=== PATIENT | male | born 1965 | race Caucasian/White ===

== ENCOUNTER 2023-12-19 09:48 | Emergency (ER) | payer OTHER, SELFPAY ==
[2023-12-19 09:59] VITALS: BP 140/83
--- NOTE | 2023-12-19 10:16 | ED.GENMED ---
History of Present Illness
<Kalyani Dodd PA-C - Last Filed: 12/19/23 14:01>
General
Chief Complaint: Skin Surface Trauma
Source: patient
Exam Limitations: none
Time Seen by Provider: 12/19/23 10:11
Nursing documentation reviewed up to this point in time: agreed with
Travel History
Have you had any contact with someone who has COVID-19?: No
Do you have any symptoms of coronavirus? Fever > 100 degrees, chills, cough, shortness of breath, sore throat, loss of taste or smell, muscle aches, or headache?: No
History of Present Illness
History of Present Illness:
58-year-old male with past medical history of anxiety, high blood pressure presenting emergency department today with a laceration to his second finger on his left hand following the injury with hedge trimmers. Patient states that shortly prior to
arrival, he was using hedge tremors outside when he lost control of it and slipped and cut his left finger. Patient denies any fevers or chills, foreign body in the finger, blood thinner use, head injury, falls. Patient denies any nausea,
vomiting, abdominal pain, chest pain, shortness of breath.
Past History
<Kalyani Dodd PA-C - Last Filed: 12/19/23 14:01>
Past History
ED Past Medical History: HTN and Psychiatric (Anxiety)
ED Past Surgical History: None
Social History
Tobacco: Non-smoker
Personal:
Employment: Employed
Phy Exam
<DARRYL Bucio Last Filed: 12/19/23 14:01>
Physical Exam
Physical Exam:
General: Patient is well appearing and in no acute distress; non-toxic
Skin: Warm and dry, there is a 2 cm actively bleeding laceration on the volar surface of the left second finger
Head: Normocephalic, atraumatic
Eyes: Sclera non-icteric. EOMs intact.
Cardiac: Regular rate
Peripheral Vascular: No lower extremity swelling
Abdomen: No abdominal tenderness
Musculoskeletal: Bony tenderness to the left middle phalanx. No bony tenderness to palpation of the left ulna, radius, olecranon, humerus. Patient unable to flex left second finger.
Neuro: CN II-XII intact, no focal neurologic deficits.
Psychiatric: Appropriate mood and affect.
Course
<Kalyani Dodd PA-C - Last Filed: 12/19/23 14:01>
Orders/Labs/Results
Orders:
Orders
12/19/23 10:26
CR Hand - Left Min 3 Views Urgent
Reason For Exam: 2nd digit trauma
12/19/23 10:31
Ibuprofen [Motrin] 600 mg PO NOW STA
12/19/23 11:48
CeFAZolin 1 GRAM [Ancef] 1 gram in 5 ml IV NOW
Vital Signs
Initial and Last Documented VS:
Initial Vital Signs
Temp Pulse Resp BP Pulse Ox
98.1 F 66 18 140/83 96
12/19/23 09:59 12/19/23 09:59 12/19/23 09:59 12/19/23 09:59 12/19/23 09:59
Last Documented Vital Signs
Temp Pulse Resp BP Pulse Ox
98.1 F 66 18 140/83 96
12/19/23 09:59 12/19/23 09:59 12/19/23 09:59 12/19/23 09:59 12/19/23 09:59
<Gage Bennett DO - Last Filed: 12/19/23 10:42>
Orders/Labs/Results
Orders:
Orders
12/19/23 10:26
CR Hand - Left Min 3 Views Urgent
Reason For Exam: 2nd digit trauma
12/19/23 10:31
Ibuprofen [Motrin] 600 mg PO NOW STA
12/19/23 11:48
CeFAZolin 1 GRAM [Ancef] 1 gram in 5 ml IV NOW
Vital Signs
Initial and Last Documented VS:
Initial Vital Signs
Temp Pulse Resp BP Pulse Ox
98.1 F 66 18 140/83 96
12/19/23 09:59 12/19/23 09:59 12/19/23 09:59 12/19/23 09:59 12/19/23 09:59
Last Documented Vital Signs
Temp Pulse Resp BP Pulse Ox
98.1 F 66 18 140/83 96
12/19/23 09:59 12/19/23 09:59 12/19/23 09:59 12/19/23 09:59 12/19/23 09:59
Procedures
<DARRYL Bucio Last Filed: 12/19/23 14:01>
Laceration Closure
Left Second Finger:
Status of Wound: clean
Size of Wound in cm: 2
Description of Wound Edges: sharp
Preparation: cleaned with saline
Anesthesia: 1% Lidocaine
Revision/Debridement: routine- no revision
Skin Closure Material: 4-0 prolene
Number of sutures: 6
<DARRYL Bucio Last Filed: 12/19/23 14:01>
MDM/Problems Addressed
Differential Diagnosis Includes:
ddx include phalanx fracture, flexor tendon injury, abrasion, laceration, contusion
MDM/Problems Addressed:
finger laceration, trauma
Chronic conditions affecting care: HTN
<DARRYL Bucio Last Filed: 12/19/23 14:01>
*Pulse Oximetry
Patient hypoxic: no
*Critical Care Note
Total Time (30-74mins, 75-104mins- exclusive of procedures): Not Applicable
Data Reviewed
Review of Other/Old Records Reveals: Records (reviewed ER physician documentation from 06/06/14)
Source: patient and records
<Kalyani Dodd PA-C - Last Filed: 12/19/23 14:01>
Patient Management
Escalation/DeEscalation of care consider admission/obs:
58-year-old male with past medical history of anxiety, high blood pressure presenting emergency department today with a laceration to his second finger on his left hand following the injury with hedge trimmers. Considering patient has inability to
flex left second digit, patient likely lacerated his flexor tendon. I spoke to Dr. Kimble, orthopedist on-call, who provided recommendations and recommended follow-up with [facility]. Patient's wound was thoroughly irrigated, and patient was
placed in a volar slab splint along with a finger splint for extra support. Patient was given 1 dose of IV cefazolin here and will continue antibiotics as outpatient. His x-ray also demonstrated a small avulsion fracture phalanx. Wound care and
return precautions given, patient will call Dr. Cantrell's office tomorrow. Patient stable for discharge.
ED Attending Note
<Kalyani Dodd PA-C - Last Filed: 12/19/23 14:01>
-
Portions of this chart may have been created with voice recognition software.� Occasional wrong word or��sound alike� substitutions may have occurred due to the inherent limitations of voice recognition software.
<Gage Bennett DO - Last Filed: 12/19/23 10:42>
ED Attending Note
Patient seen and examined by attending physician: Yes
I performed the substantive portion of visit, reviewed & personally made and approve the management plan that is documented in note by myself or QUENTIN.: Yes
ED Attending Note:
I have seen and evaluated the patient with a [id number] encounter. I have spoken to the advance practicer provider and involved in the medical history, the physical exam, medical decision making.
Evaluation and management service: agree unless noted differently below.
Results interpretation: agree unless noted differently below.
Focused HPI: 58-year-old male presenting with left finger injury. Patient was using his hedge tremor and he cut his left finger by accident. He is right-hand
Physical exam: Laceration noted to left finger. Patient unable to flex his left index finger
Medical Decision Making: Clinically, patient cut his flexor tendon. Will obtain x-ray, suture and splint and follow-up with hand
Discharge Plan
Departure
Patient Disposition: Home (Routine Discharge)
Date of Disposition: 12/19/23
Time of Disposition: 12:45
Patient with high blood pressure during this ER visit?: Yes
Condition: Good
Discharge Problem:
Finger laceration involving tendon, Avulsion fracture of middle phalanx of finger
Instructions: Wound Care (DC), Laceration Repair With Stitches (DC), Splint Care ED, BLOOD PRESSURE
Prescriptions:
New
cephalexin 500 mg capsule
500 mg feeding tube QID 7 Days Qty: 28 0RF
No Action
citalopram 10 MG tablet
10 mg PO DAILY
Lopressor:
0 mg PO DAILY
Patient Comments:
Pt thinks 25 mg
sulfacetamide sodium 1 DROP drops
1 drp ophthalmic (eye) Q3 Qty: 1 0RF
Referrals:
Benjamin Morgan MD [Family Provider] -
Avni Cantrell MD [Active] - Call in 1-3 days for appt
Activity Restrictions/Additional Instructions:
We have sent cephalexin to your pharmacy. Please take one tablet 4 times daily for 7 days starting tomorrow.
Please call the attached number to schedule appointment for follow up. Please tell them you were seen in the emergency department.
PLEASE RETURN TO THE ER SHOULD YOU EXPERIENCE AN ACUTE WORSENING OF YOUR PAIN, ABDOMINAL PAIN, FEVERS OR CHILLS, NAUSEA OR VOMITING, CHEST PAIN, SHORTNESS OF BREATH, OR ANY OTHER CONCERNING SIGNS OR SYMPTOMS.
Interventions
Interventions:
*Risk Screen - Suicide Last Done: 12/19/23 09:59
*General Assessment Last Done: 12/19/23 09:59
*Neglect/Abuse Screening Last Done: 12/19/23 09:59
*ED COVID-19 Vaccine History Last Done: 12/19/23 09:59
*Nursing Disposition Last Done: 12/19/23 13:03
ED-Skin Assessment Last Done: 12/19/23 11:16
Discharge Date and Time
Discharge Date/Time: 12/19/23 13:03
Print Language: HEBREW
[2023-12-19] MEDS: MOTRIN 600 MG PO (11:02)
[2023-12-19] MEDS: ANCEF 5 IV (11:52)
== END 2023-12-19 13:03 | disposition home or self-care (01) ==
LOC: EMR 09:48
PROVIDERS: EMERGENCY PHYSICIAN Student in an Organized Health Care Education/Training Program; FAMILY PHYSICIAN Internal Medicine
DX: S56.122A Laceration of flexor muscle, fascia and tendon of left index finger at forearm level, initial encounter (principal); W29.3XXA Contact with powered garden and outdoor hand tools and machinery, initial encounter; I10 Essential (primary) hypertension; F41.9 Anxiety disorder, unspecified
CPT/HCPCS: 99282; 12001; 96374; 73130

== ENCOUNTER 2023-12-26 18:05 | Observation (INO) | payer OTHER, SELFPAY ==
[2023-12-26] VITALS (12 sets, daily range): BP systolic 118–150; BP diastolic 65–85; BMI 27.0
--- NOTE | 2023-12-26 09:21 | ED.GENMED ---
History of Present Illness
<Brett Hutchison Jr., PA-C - Last Filed: 12/26/23 16:39>
General
Chief Complaint: Abdominal Symptoms
Source: patient and spouse
Exam Limitations: none
Time Seen by Provider: 12/26/23 09:10
Nursing documentation reviewed up to this point in time: agreed with
Travel History
Have you had any contact with someone who has COVID-19?: No
Do you have any symptoms of coronavirus? Fever > 100 degrees, chills, cough, shortness of breath, sore throat, loss of taste or smell, muscle aches, or headache?: No
History of Present Illness
History of Present Illness:
58-year-old male past medical history of hypertension anxiety presenting to the emergency department today with concerns of lightheadedness starting yesterday progressing this morning with associated nausea and multiple episodes of vomiting this
morning. Was given Zofran via EMS and without improve denies any specific exposures. He did have a recent tendon repair to his left hand claims is otherwise feels well he denies any significant pain to the area denies any abdominal pain chest pain
or shortness of breath.
Past History
<Brett Hutchison Jr., PA-C - Last Filed: 12/26/23 16:39>
Past History
ED Past Medical History: HTN and Psychiatric (Anxiety)
ED Past Surgical History: None
Social History
Tobacco: Non-smoker
Personal:
Employment: Employed
Review of Systems
<Brett Hutchison Jr., PA-C - Last Filed: 12/26/23 16:39>
Review of Systems
Allergies reviewed?: Yes
All Other Systems: ROS reviewed and negative except as documented in HPI and ROS
Phy Exam
<Brett Hutchison Jr., PA-C - Last Filed: 12/26/23 16:39>
Physical Exam
Physical Exam:
GENERAL: Alert , diaphoretic
EYE: pupils equal and reactive
NECK: Supple, no significant adenopathy.
ENT: o/p clr, mmm.
CARDIAC: Regular rate and rhythm .
LUNGS: Clear breath sounds bilaterally, no acute respiratory distress, no wheezes/rales/rhonchi
ABDOMEN: Soft, without focal tenderness, no r/g, no cvat
NEUROLOGICAL: Alert and oriented, no focal neuro deficits
SKIN: Warm and dry, skin intact.
MUSCULOSKELETAL: No edema, well perfused.
PSYCH: Normal and appropriate interaction.
Course
<Brett Hutchison Jr., DARRYL - Last Filed: 12/26/23 16:39>
Orders/Labs/Results
Orders:
Orders
12/26/23 09:00
Electrocardiogram (*1) Urgent
Reason for Study: Vertigo / Dizzy
12/26/23 09:01
EKG- Treatment ONCE
12/26/23 09:19
Diphenhydramine [Benadryl] 25 mg IV NOW STA
Metoclopramide [Reglan] 10 mg IV NOW STA
12/26/23 09:23
Complete Blood Count/With Diff Urgent
Comprehensive Metabolic Panel Urgent
Lactic Acid Urgent
Lipase Urgent
Troponin I Urgent
12/26/23 10:20
0.9% Sodium Chloride 500 ml [Nss] 500 ml IV BOLUS
Famotidine [Pepcid] 20 mg IV NOW STA
Ondansetron Injectable [Zofran] 4 mg IV NOW STA
12/26/23 10:41
Chest [CR Chest - 2 Views ] Urgent
Comment:
Reason For Exam: vomiting, lightheaded
12/26/23 12:50
0.9% Sodium Chloride 500 ml [Nss] 500 ml IV BOLUS
12/26/23 12:58
Lactic Acid Urgent
12/26/23 14:15
CT Head & Neck Angio W/wo IV Urgent
Comment:
Reason For Exam: neck pain dizziness
12/26/23 Dinner
Regular
At Your Request: Limited, Iron Erector Required
Does patient need a safe tray?: No
12/26/23 15:12
Meclizine [Antivert] 25 mg PO NOW STA
Ondansetron Injectable [Zofran] 4 mg IV NOW STA
12/26/23 15:14
Ondansetron Injectable [Zofran] 4 mg .ROUTE .STK-MED ONE
12/26/23 16:36
Pt Eval And Treat Urgent
Treatment: vestibular
Activity Level: Ambulate
12/26/23 16:44
Urinalysis Reflex To Culture Urgent
Date Specimen was Collected: 12/26/23
Time Specimen was Collected: 16:43
12/26/23 17:42
Admit/Transfer Patient As Directed
Co-Sign Provider:
Level of Care: Observation services
Assign to:: Telemetry
Physician / Group: vasyl
Diagnosis: vestibular neuritis
Reason for Telemetry: Arrhythmia
Date to Stop Telemetry: 12/29/23
Time to Stop Telemetry: 11:00
Code Status As Directed
Resuscitation Status: Full Code
12/26/23 17:45
Alprazolam [Xanax] 0.5 mg PO Q6HPRN PRN
12/26/23 19:36
Acetaminophen [Tylenol] 650 mg PO Q4HPRN PRN
Ezetimibe [Zetia] 10 mg PO QPM
Hydrocodone 5/APAP 325 [Fairplay 5/325] 1 tablet PO Q4HPRN PRN
Ondansetron Injectable [Zofran] 4 mg IV Q6HPRN PRN
Prednisone [Deltasone] 60 mg PO DAILY
12/26/23 19:36
Activity As Directed
Activity Level: As Tolerated
Pneumatic Compression Sleeves As Directed
Type: Knee high
Vital Signs As Directed
Frequency: Per unit guidelines
DX Deep Vein Thrombosis Video Routine
12/26/23 20:00
Tamsulosin [Flomax] 0.4 mg PO QPM
12/26/23 22:00
Cephalexin Monohydrate [Keflex] 500 mg PO QID
Sertraline HCl [Zoloft] 100 mg PO HS
12/27/23 06:18
Complete Blood Count/With Diff IN AM
Comprehensive Metabolic Panel IN AM
12/29/23 11:00
DC Protocol for Telemetry ONCE
Abnormal Lab Results
12/26/23 12/26/23
09:23 16:44
RBC 4.30 L 10^6/uL
(4.70-6.10)
Hct 38.8 L %
(39.0-52.0)
MCH 31.6 H pg
(27.0-31.0)
Glucose 172 H mg/dl
(70-99)
Lactic Acid 2.3 H mmol/L
(0.7-2.0)
Urine Ketones Trace A
(Negative)
Urine Glucose 1+ A
(Negative)
12/26/23 09:23
12/26/23 09:23
Vital Signs
Initial and Last Documented VS:
Initial Vital Signs
Temp Pulse Resp BP Pulse Ox
98.0 F 65 16 150/77 98
12/26/23 09:08 12/26/23 09:08 12/26/23 09:08 12/26/23 09:08 12/26/23 09:08
Last Documented Vital Signs
Temp Pulse Resp BP Pulse Ox
97.6 F 84 16 141/86 95
12/27/23 07:28 12/27/23 07:28 12/27/23 07:28 12/27/23 07:28 12/27/23 07:28
<Citlaly Borges, DO - Last Filed: 12/27/23 11:09>
Orders/Labs/Results
Orders:
Orders
12/26/23 09:00
Electrocardiogram (*1) Urgent
Reason for Study: Vertigo / Dizzy
12/26/23 09:01
EKG- Treatment ONCE
12/26/23 09:19
Diphenhydramine [Benadryl] 25 mg IV NOW STA
Metoclopramide [Reglan] 10 mg IV NOW STA
12/26/23 09:23
Complete Blood Count/With Diff Urgent
Comprehensive Metabolic Panel Urgent
Lactic Acid Urgent
Lipase Urgent
Troponin I Urgent
12/26/23 10:20
0.9% Sodium Chloride 500 ml [Nss] 500 ml IV BOLUS
Famotidine [Pepcid] 20 mg IV NOW STA
Ondansetron Injectable [Zofran] 4 mg IV NOW STA
12/26/23 10:41
Chest [CR Chest - 2 Views ] Urgent
Comment:
Reason For Exam: vomiting, lightheaded
12/26/23 12:50
0.9% Sodium Chloride 500 ml [Nss] 500 ml IV BOLUS
12/26/23 12:58
Lactic Acid Urgent
12/26/23 14:15
CT Head & Neck Angio W/wo IV Urgent
Comment:
Reason For Exam: neck pain dizziness
12/26/23 Dinner
Regular
At Your Request: Limited, Iron Erector Required
Does patient need a safe tray?: No
12/26/23 15:12
Meclizine [Antivert] 25 mg PO NOW STA
Ondansetron Injectable [Zofran] 4 mg IV NOW STA
12/26/23 15:14
Ondansetron Injectable [Zofran] 4 mg .ROUTE .STK-MED ONE
12/26/23 16:36
Pt Eval And Treat Urgent
Treatment: vestibular
Activity Level: Ambulate
12/26/23 16:44
Urinalysis Reflex To Culture Urgent
Date Specimen was Collected: 12/26/23
Time Specimen was Collected: 16:43
12/26/23 17:42
Admit/Transfer Patient As Directed
Co-Sign Provider:
Level of Care: Observation services
Assign to:: Telemetry
Physician / Group: vasyl
Diagnosis: vestibular neuritis
Reason for Telemetry: Arrhythmia
Date to Stop Telemetry: 12/29/23
Time to Stop Telemetry: 11:00
Code Status As Directed
Resuscitation Status: Full Code
12/26/23 17:45
Alprazolam [Xanax] 0.5 mg PO Q6HPRN PRN
12/26/23 19:36
Acetaminophen [Tylenol] 650 mg PO Q4HPRN PRN
Ezetimibe [Zetia] 10 mg PO QPM
Hydrocodone 5/APAP 325 [[place]play 5/325] 1 tablet PO Q4HPRN PRN
Ondansetron Injectable [Zofran] 4 mg IV Q6HPRN PRN
Prednisone [Deltasone] 60 mg PO DAILY
12/26/23 19:36
Activity As Directed
Activity Level: As Tolerated
Pneumatic Compression Sleeves As Directed
Type: Knee high
Vital Signs As Directed
Frequency: Per unit guidelines
DX Deep Vein Thrombosis Video Routine
12/26/23 20:00
Tamsulosin [Flomax] 0.4 mg PO QPM
12/26/23 22:00
Cephalexin Monohydrate [Keflex] 500 mg PO QID
Sertraline HCl [Zoloft] 100 mg PO HS
12/27/23 06:18
Complete Blood Count/With Diff IN AM
Comprehensive Metabolic Panel IN AM
12/29/23 11:00
DC Protocol for Telemetry ONCE
Abnormal Lab Results
12/26/23 12/26/23
09:23 16:44
RBC 4.30 L 10^6/uL
(4.70-6.10)
Hct 38.8 L %
(39.0-52.0)
MCH 31.6 H pg
(27.0-31.0)
Glucose 172 H mg/dl
(70-99)
Lactic Acid 2.3 H mmol/L
(0.7-2.0)
Urine Ketones Trace A
(Negative)
Urine Glucose 1+ A
(Negative)
12/26/23 09:23
12/26/23 09:23
Vital Signs
Initial and Last Documented VS:
Initial Vital Signs
Temp Pulse Resp BP Pulse Ox
98.0 F 65 16 150/77 98
12/26/23 09:08 12/26/23 09:08 12/26/23 09:08 12/26/23 09:08 12/26/23 09:08
Last Documented Vital Signs
Temp Pulse Resp BP Pulse Ox
97.6 F 84 16 141/86 95
12/27/23 07:28 12/27/23 07:28 12/27/23 07:28 12/27/23 07:28 12/27/23 07:28
<Brett Hutchison Jr., PA-C - Last Filed: 12/26/23 16:39>
MDM/Problems Addressed
MDM/Problems Addressed:
58-year-old male presenting to the emergency department today with concerns of lightheadedness ongoing since yesterday associated nausea and vomiting this. Given Zofran en route without improvement via EMS. Vital signs showing slightly elevated
blood pressure upon arrival but otherwise vital signs are normal afebrile normal heart rate. Patient actively retching here was given IV Reglan and Benadryl. Patient with some improvement of symptoms patient lactic was slightly elevated but other
labs unremarkable. He was given a liter and half of fluid the lactic acid was repeated now 1.1 and normal levels no signs of ACS with normal troponin normal EKG chest x-ray without acute abnormality. Patient claims he still feels lightheaded and
does have dizziness and feelings of off balance this this in association with the patient's neck pain plan to get a CT angiogram of the head neck. CT angiogram without acute findings. Patient was reassessed and claims that he still feels very
dizzy unable to ambulate. Plan to admit for further assessment and treatment. Patient without significant treatment after receiving meclizine Zofran Reglan and Benadryl.
<Brett Hutchison Jr., PA-C - Last Filed: 12/26/23 16:39>
*Critical Care Note
Total Time (30-74mins, 75-104mins- exclusive of procedures): Not Applicable
ED Attending Note
<Brett Hutchison Jr., PA-C - Last Filed: 12/26/23 16:39>
-
Portions of this chart may have been created with voice recognition software.� Occasional wrong word or��sound alike� substitutions may have occurred due to the inherent limitations of voice recognition software.
<Citlaly Borges DO - Last Filed: 12/27/23 11:09>
ED Attending Note
Patient seen and examined by attending physician: Yes
ED Attending Note:
58yoM presenting with dizzines for the past 2 days progressively worsening. Patient states he was able to go to the [employer] last night but had to leave in the fourth inning due to dizziness that was worse with standing up and moving his head.
Patient reports nausea and vomiting this morning. Patient states dizziness waxes and wanes but is always constant. Patient denies headache, neck pain, chest pain, shortness of breath, numbness, weakness, tingling, tinnitus, or visual changes. Heart
RRR, lungs clear, abdomen soft nondistended nontender. CNII-XII grossly intact with no focal deficits. +nystagmus. PERRLA, EOMI. Normal finger to nose. 5/5 strength bilateral upper and lower extremities. Sensation intact. Continues to report
dizziness despite IVF and meclizine, unable to stand. CTA head/neck unremarkable. Admit
Discharge Plan
Departure
Patient Disposition: Admit
Date of Disposition: 12/26/23
Time of Disposition: 16:36
Admit to: Telemetry
Admit to doctor: Mariola
Presentation/result/management discussed w/ accepting MD/DO: Hospitalist
Patient with high blood pressure during this ER visit?: No
Condition: Good
Covid-19: Not Applicable
Discharge Problem:
Dizziness
Interventions
Interventions:
*Risk Screen - Suicide Last Done: 12/26/23 09:19
*General Assessment Last Done: 12/26/23 09:19
*Neglect/Abuse Screening Last Done: 12/26/23 09:19
ED- Fall Risk Assessment Last Done: 12/26/23 09:19
*ED COVID-19 Vaccine History Last Done: 12/26/23 08:58
*Nursing Disposition Last Done: 12/26/23 19:26
AI-Dhjhel-Vcmshrdpph Assessment Last Done: 12/26/23 09:19
Discharge Date and Time
Discharge Date/Time: 12/26/23 19:26
[2023-12-26] MEDS: REGLAN 10 MG IV (09:24)
[2023-12-26] MEDS: BENADRYL 25 MG IV (09:24)
[2023-12-26 09:37] LABS: % Basophils 0.4 % (0-2); % Immature Granulocytes 0.3 % (0-0.5); % Monocytes 6.1 % (1.7-9.3); % Neutrophils 65.2 % (42.2-75.2); Absolute Eosinophils 0.2 10^3/uL (0-0.7); Absolute Lymphocytes 1.9 10^3/uL (1.2-3.4); Absolute Monocytes 0.5 10^3/uL (0.1-0.6); Absolute Neutrophils 4.8 10^3/uL (1.4-6.5); Hematocrit 38.8 % (39.0-52.0); Hemoglobin 13.6 g/dL (13.0-18.0); Mean Corp Hgb Conc. 35.1 g/dL (33.0-37.0); Mean Corpuscular Hgb 31.6 pg (27.0-31.0); Mean Corpuscular Volume 90.2 fL (80.0-94.0); Mean Platelet Volume 8.9 fL (7.4-10.4); Nucleated Red Blood Cells % 0 % (-); Platelet Count 265 10^3/uL (130-400); Red Cell Dist. Width 12.1 % (11.5-14.5); White Blood Cell Count 7.3 10^3/uL (4.8-10.8)
[2023-12-26 10:04] LABS: ALT (SGPT) 15 U/L (0-50); AST (SGOT) 21 U/L (17-59); Albumin 3.8 g/dl (3.5-5.0); Alkaline Phosphatase 48 U/L (38-126); Blood Urea Nitrogen 19 mg/dl (9-20); Carbon Dioxide 25 mmol/L (22-30); Chloride 106 mmol/L (98-107); Glucose 172 mg/dl (70-99); Lipase 70 U/L (23-300); Potassium 3.6 mmol/L (3.5-5.1); Sodium 139 mmol/L (135-145); Total Bilirubin 0.4 mg/dl (0.2-1.3); Total Protein 6.3 g/dl (6.3-8.2); eGFR > 60.00
[2023-12-26 10:05] LABS: Troponin I < 0.012 ng/ml
[2023-12-26] MEDS: ZOFRAN 4 MG IV ×2 (10:25→15:19)
[2023-12-26] MEDS: PEPCID 20 MG IV (10:25)
[2023-12-26] MEDS: NSS 500 IV ×2 (10:26→13:01)
[2023-12-26 10:30] LABS: Lactic Acid 2.3 mmol/L (0.7-2.0)
[2023-12-26 13:25] LABS: Lactic Acid 1.1 mmol/L (0.7-2.0)
[2023-12-26] MEDS: ANTIVERT 25 MG PO (15:19)
[2023-12-26 16:59] LABS: Urine Albumin Negative (Neg - Trace); Urine Bilirubin Negative (Negative); Urine Character Clear (Clear); Urine Color Yellow; Urine Glucose 1+ (Negative); Urine Ketone Trace (Negative); Urine Leukocyte Negative (Negative); Urine Nitrite Negative (Negative); Urine Occult Blood Negative (Negative); Urine Specific Gravity 1.015 (<1.030); Urine Urobilinogen Negative (Neg - 1+)
--- NOTE | 2023-12-26 17:47 | HPS.HSE ---
Family Physician
-
Family Physician: Benjamin Morgan
Chief Complaint
-
vertigo
History of Present Illness
58-year-old male past medical history of hypertension, anxiety, HLD, recent left hand tendon repair 4 days ago presenting with lightheadedness/vertigo started yesterday and progressively getting worse today. Symptoms are described as a combination
of dizziness and spinning. Symptoms are worse with with his eyes open, rightward gaze and when he moves his head. He did have some neck stiffness which is improved now. He had nausea and multiple episodes of vomiting. Denies abdominal pain,
diarrhea. Denies fevers or chills. Denies any headache, blurry vision or double vision or hearing loss or ringing in the ears. Denies any recent upper respiratory infection.
He had similar symptoms 1 year ago while he was playing golf which resolved after he sat down for some period of time.
He drinks alcohol occasionally.
Medical History
Past Medical History
Past Medical History: Reports Other (hypertension, anxiety, HLD, recent left hand tendon repair 4 days ago)
Past Surgical History: Reports Other (left hand tendon repair, right shoulder surgery )
Social History
Tobacco: Non-smoker
Alcohol: Occasional
Drug: None
Family History
Family History: Not pertinent
Allergies / Home Medications
Allergies reflects when Allergies were last updated in [facility].
Home Medications with original date entered in [facility]
Allergy/Medication List:
Allergies
Allergy/AdvReac Type Severity Reaction Status Date / Time
Wiqollu-FMG-LvO Reductase Allergy Mild Unknown Verified 12/19/23 09:59
Inhibitor
shellfish derived Allergy Unknown Verified 12/19/23 09:59
Home Medications
acetaminophen 325 mg tablet (Tylenol) 650 mg PO Q4HPRN PRN MILD PAIN 12/26/23
alfuzosin 10 mg tablet,extended release 24 hr 10 mg PO QPM 12/26/23
cephalexin 500 mg capsule 500 mg PO QID 12/26/23
ezetimibe 10 mg tablet (Zetia) 10 mg PO QPM 12/26/23
hydrocodone 5 mg-acetaminophen 325 mg tablet 1 tab PO Q4HPRN PRN SEVERE PAIN 12/26/23
sertraline 100 mg tablet 100 mg PO HS 12/26/23
Review of Systems
-
History Source: Patient
A 12 point ROS was completed and negative except as noted: Yes
Constitutional: Reports No Symptoms
EENT: Reports No Symptoms
Respiratory: Reports No Symptoms
Cardiac: Reports No Symptoms
Abdomen/GI: Reports No Symptoms
: Reports No Symptoms
Musculoskeletal: Reports No Symptoms
Skin: Reports No Symptoms
Neurological: Reports See HPI
Endocrine: Reports No Symptoms
Hematologic/Lymphatic: Reports No Symptoms
Psych: Reports No Symptoms
Physical Exam
Vital Signs
Vital Signs
Temp Pulse Resp BP Pulse Ox
98.0 F 73 13 132/74 98
12/26/23 09:08 12/26/23 17:15 12/26/23 17:15 12/26/23 17:00 12/26/23 09:08
Physical Exam
General: Well Developed, Well Nourished and No Apparent Distress
HEENT: NormoCephalic, Moist mucous membranes and Atraumatic
Respiratory: Clear
Cardiac: S1/S2 and Regular Rhythm; No Murmur or Rub
GI: Soft, Non Tender, Non Distended and Normal Bowel Sounds; No Organomegaly
Rectal: Deferred by Provider
Musculoskeletal: No Clubbing, No Cyanosis and No Edema
Skin: No Rash
Neuro: Nonfocal/grossly intact and Other (horizontal nystagmus )
Laboratory Results
-
12/26/23 09:23
12/26/23 09:23
Laboratory Results
Lactic Acid 1.1 mmol/L (0.7-2.0) 12/26/23 12:58
Total Bilirubin 0.4 mg/dl (0.2-1.3) 12/26/23 09:23
AST 21 U/L (17-59) 12/26/23 09:23
ALT 15 U/L (0-50) 12/26/23 09:23
Alkaline Phosphatase 48 U/L (38-126) 12/26/23 09:23
Troponin I < 0.012 ng/ml 12/26/23 09:23
Lipase 70 U/L (23-300) 12/26/23 09:23
Data Reviewed
-
Lab Data: Labs Reviewed by me
Old Records: Reviewed
Impression/Plan
-
IMPRESSION:
PLAN:
# Acute vertigo likely secondary to vestibular neuritis
-Horizontal nystagmus on examination
-CTA head and neck does not show any abnormality
-Xanax, Zofran for symptomatic relief
-Start prednisone 60 mg
-Vestibular therapy
-Check MRI brain
Recent left hand tendon repair 4 days ago
-On Keflex which should be continued for 3 more days for total 7 days
Essential hypertension
-Continue alfuzosin
Anxiety/depression
-Continue sertraline
Hyperlipidemia
-Continue Zetia
Full code
DVT prophylaxis�SCDs
Regular diet
[2023-12-26] MEDS: ZETIA 10 MG PO (20:35)
[2023-12-26] MEDS: DELTASONE 60 MG PO (20:35)
[2023-12-26] MEDS: FLOMAX 0.400000000000000022 MG PO (20:35)
[2023-12-26] MEDS: KEFLEX 500 MG PO (21:34)
[2023-12-26] MEDS: ZOLOFT 100 MG PO (21:34)
[2023-12-27] VITALS (7 sets, daily range): BP systolic 127–150; BP diastolic 23–86; PULSE 63; O2SAT 97
--- NOTE | 2023-12-27 06:35 | PTCARENOTE ---
Patient arrived on unit @1936 via stretcher. Patient AAOx3, kept eyes close due to dizziness when opened. Patient pulled over from stretcher to bed with assist x3, denies any pain. Skin assessment completed, oriented to unit, call blum within reach.
[2023-12-27 07:12] LABS: % Basophils 0.1 % (0-2); % Immature Granulocytes 0.4 % (0-0.5); % Lymphocytes 6.2 % (20.5-51.1); % Monocytes 0.6 % (1.7-9.3); % Neutrophils 92.7 % (42.2-75.2); Absolute Lymphocytes 0.6 10^3/uL (1.2-3.4); Absolute Monocytes 0.1 10^3/uL (0.1-0.6); Absolute Neutrophils 8.6 10^3/uL (1.4-6.5); Hematocrit 40.7 % (39.0-52.0); Hemoglobin 14.2 g/dL (13.0-18.0); Mean Corp Hgb Conc. 34.9 g/dL (33.0-37.0); Mean Corpuscular Hgb 31.6 pg (27.0-31.0); Mean Corpuscular Volume 90.6 fL (80.0-94.0); Mean Platelet Volume 9.2 fL (7.4-10.4); Nucleated Red Blood Cells % 0 % (-); Platelet Count 240 10^3/uL (130-400); Red Blood Cell Count 4.49 10^6/uL (4.70-6.10); Red Cell Dist. Width 12.1 % (11.5-14.5); White Blood Cell Count 9.3 10^3/uL (4.8-10.8)
[2023-12-27 07:44] LABS: ALT (SGPT) 14 U/L (0-50); AST (SGOT) 23 U/L (17-59); Albumin 3.8 g/dl (3.5-5.0); Alkaline Phosphatase 46 U/L (38-126); Blood Urea Nitrogen 15 mg/dl (9-20); Calcium 9.6 mg/dl (8.4-10.2); Carbon Dioxide 25 mmol/L (22-30); Chloride 105 mmol/L (98-107); Estimated Creatinine Clearance 90 ml/min; Glucose 128 mg/dl (70-99); Potassium 4.3 mmol/L (3.5-5.1); Sodium 137 mmol/L (135-145); Total Bilirubin 0.5 mg/dl (0.2-1.3); Total Protein 6.2 g/dl (6.3-8.2); eGFR > 60.00
[2023-12-27] MEDS: KEFLEX 500 MG PO ×4 (08:05→21:16)
[2023-12-27] MEDS: DELTASONE 60 MG PO (08:05)
--- NOTE | 2023-12-27 09:32 | W.PN.HOSP.TC ---
Today's Communication/Plan
-
see plan above
Assessment / Plan
Assessment / Plan
# Acute vertigo likely secondary to vestibular neuritis
- MRI brain to rule out stroke .Clincially doubt it
-CTA head and neck does not show any abnormality
- Add ROYAL Valium from symptomatic treatment. Add as needed Antivert.
-Start prednisone 60 mg-continue the current dose for 5 days and taper
-Vestibular therapy
Recent left hand tendon repair 4 days ago
-On Keflex which should be continued for 3 more days for total 7 days
Essential hypertension
-Continue alfuzosin
Anxiety/depression
-Continue sertraline
Hyperlipidemia
-Continue Zetia
Full code
DVT prophylaxis�SCDs
Regular diet
Anticipated Discharge: 24 - 48 hours
Subjective/Interval History
-
Date of Service: December 27, 2023
Patient still very symptomatic.
He cannot even open his eyes without getting the vertigo. He has been keeping his eyes closed during my whole visit.
It all started on Tuesday and progressively got worse. It was mild in nature on Tuesday. On Tuesday he could go to the [employer] but on the endings he was not comfortable he came back. Tuesday morning he was extremely symptomatic with
vertigo and imbalance and called 911.
No headache.
No risk factors for stroke. Non-smoker.
No recent upper respiratory tract infection symptoms. He occasionally does sinus washout he has done nothing last week but 2-week before.
On he had an orthopedic office procedure under general anesthesia. He states it was tendon repair.
He once had a similar symptom a year ago but it was very short-lived.
Objective Data
-
Labs:
Laboratory Results
12/27/23
06:18
WBC 9.3
Hgb 14.2
Hct 40.7
Plt Count 240
Sodium 137
Potassium 4.3
Chloride 105
Carbon Dioxide 25
BUN 15
Creatinine 0.9
Glucose 128 H
Calcium 9.6
Total Bilirubin 0.5
AST 23
ALT 14
Alkaline Phosphatase 46
Vital Signs:
Vital Signs
Temp Pulse Resp BP Pulse Ox
97.6 F 84 16 141/86 95
12/27/23 07:28 12/27/23 07:28 12/27/23 07:28 12/27/23 07:28 12/27/23 07:28
I&O
12/26/23 12/27/23 12/28/23
06:59 06:59 06:59
Intake Total 480 / 480
Output Total 1640 / 1640
Balance -1160 / -1160
Review of Systems
-
Constitutional: Denies Fever
EENT: Denies Sore Throat
Respiratory: Denies Cough or Trouble Breathing
Cardiac: Denies Chest Pain
Abdomen/GI: Reports Nausea (With vertigo)
Neuro: Reports Dizzy; Denies Headache, Weakness, Numbness, Ataxia (Imbalance) or Tremors
Physical Exam
-
Cardiac: Regular Rhythm and S1/S2
Neuro: AO x 3, No Motor Deficits and Other (Patient when opened eyes could not fixate his vision for a bit. Looking to the right he had an nystagmus horizontal. It was kind of suppressed with visual fixation. After head movements it was hard for
him to visually fixate then he started become nauseous. Did not attempt walking); Negative Tremors, Slurred Speech or Facial Droop
Psych: Calm
Data Reviewed
-
Labs: Labs Reviewed by me
[2023-12-27] MEDS: VALIUM 5 MG PO ×3 (11:31→21:16)
--- NOTE | 2023-12-27 15:06 | CM ---
Alert awake oriented patient who lives with his Stephanie who lives in a 3 story home with 2 step to enter and 16 steps to bed and bathroom. He is independent in driving and in all activities of daily living.He adaptive devices.He was offered VN
he was not sure.Observation letter given.Signed letter on chart.
No VN hx / No SNF history
Pharmacy [facility]
PCP DR Morgan
PLAN Pt not sure of dc plan
[2023-12-27] MEDS: FLOMAX 0.400000000000000022 MG PO (17:13)
[2023-12-27] MEDS: ZETIA 10 MG PO (17:14)
[2023-12-27] MEDS: ZOLOFT 100 MG PO (21:16)
[2023-12-28 03:40] VITALS: BP 142/85
[2023-12-28 07:00] VITALS: BP 121/67
[2023-12-28] MEDS: DELTASONE 60 MG PO (08:43)
[2023-12-28] MEDS: VALIUM 5 MG PO ×3 (08:43→21:06)
[2023-12-28] MEDS: KEFLEX 500 MG PO ×4 (08:43→21:06)
[2023-12-28 11:00] VITALS: BP 141/83
--- NOTE | 2023-12-28 11:19 | W.PN.HOSP.TC ---
Today's Communication/Plan
-
Follow PT OT eval
DC planning
Assessment / Plan
Assessment / Plan
# Acute vertigo likely secondary to vestibular neuritis
- MRI brain shows no evidence of acute stroke
- CTA head and neck does not show any abnormality
-Improved clinical symptoms of vertigo. Continue with Valium scheduled and as needed Antivert.
-cw prednisone 60 mg-for total of 5 days then taper
-Vestibular therapy
-Follow-up with ENT as outpatient.
Recent left hand tendon repair 4 days ago
-On Keflex which should be continued for 2 more days for total 7 days
Essential hypertension
-Continue alfuzosin
Anxiety/depression
-Continue sertraline
Hyperlipidemia
-Continue Zetia
Full code
DVT prophylaxis�SCDs
Regular diet
PT OT eval and depending on his improvement with his balance will start discharge plan.
Anticipated Discharge: Today
Subjective/Interval History
-
Date of Service: December 28, 2023
Improving vertigo. Now he is able to open eyes and sit age of the bed .
Still vertigo comes on with certain movements of the head.
Objective Data
-
Vital Signs:
Vital Signs
Temp Pulse Resp BP Pulse Ox
98.0 F 54 16 121/67 97
12/28/23 07:00 12/28/23 07:00 12/28/23 07:00 12/28/23 07:00 12/28/23 07:00
I&O
12/27/23 12/28/23 12/29/23
06:59 06:59 06:59
Intake Total 480 / 480 1580 / 1580
Output Total 1640 / 1640 1350 / 1350
Balance -1160 / -1160 230 / 230
Review of Systems
-
EENT: Denies Tinnitis or Hearing Loss
Abdomen/GI: Denies Nausea or Vomiting
Neuro: Denies Headache, Weakness or Tremors
Physical Exam
-
Cardiac: Regular Rhythm and S1/S2
Neuro: AO x 3, No Motor Deficits and Other (Still nystagmus looking to the right but improved. Now able to fixate his eyes during head impulse test.); Negative Tremors, Slurred Speech or Facial Droop
Psych: Calm; Negative Confused
Data Reviewed
-
MRI: Report Reviewed by me (MRI brain)
[2023-12-28 15:00] VITALS: BP 147/85
[2023-12-28] MEDS: FLOMAX 0.400000000000000022 MG PO (17:05)
[2023-12-28] MEDS: ZETIA 10 MG PO (17:05)
[2023-12-28 19:53] VITALS: BP 120/73
[2023-12-28] MEDS: ZOLOFT 100 MG PO (21:06)
[2023-12-28 23:34] VITALS: BP 118/84
[2023-12-29 03:23] VITALS: BP 147/87
[2023-12-29] MEDS: DELTASONE 60 MG PO (07:51)
[2023-12-29] MEDS: KEFLEX 500 MG PO ×2 (07:52→12:37)
[2023-12-29] MEDS: VALIUM 5 MG PO (07:52)
[2023-12-29 08:19] VITALS: BP 157/91
--- NOTE | 2023-12-29 09:19 | W.DS.TRANS ---
DC Summary - [employer]
-
Discharge Instructions:
Discharge Diagnosis/Procedures Acute vestibular neuronitis
Diet Regular
Activity As tolerated
Driving Restrictions Not until seen by your Dr
Other Services PT,OT
Instructions:
Stand-Alone Forms:
Changes to Home Medications: Yes
Discharge Medications:
DC Medications w/original date entered in [facility]
acetaminophen 325 mg tablet (Tylenol) 650 mg PO Q4HPRN PRN MILD PAIN 12/26/23
alfuzosin 10 mg tablet,extended release 24 hr 10 mg PO QPM Urinary Issue 12/26/23
cephalexin 500 mg capsule 500 mg PO QID Infection 12/26/23
ezetimibe 10 mg tablet (Zetia) 10 mg PO QPM High Cholesterol 12/26/23
hydrocodone 5 mg-acetaminophen 325 mg tablet 1 tab PO Q4HPRN PRN SEVERE PAIN 12/26/23
sertraline 100 mg tablet 100 mg PO HS Depression 12/26/23
meclizine 25 mg tablet 25 mg PO Q8HPRN PRN vertigo/dizziness #20 tabs 12/28/23
prednisone 10 mg tablet 10 mg PO DIRECTED #22 tabs 12/28/23
Home Medication Changes
meclizine 25 mg tablet 25 mg PO Q8HPRN PRN vertigo/dizziness #20 tabs 12/28/23
prednisone 10 mg tablet 10 mg PO DIRECTED #22 tabs 12/28/23
Pending Results: No
[2023-12-29 10:45] VITALS: BP 138/83; PULSE 62; O2SAT 96
[2023-12-29 10:50] VITALS: BP 138/83; PULSE 62; O2SAT 96
[2023-12-29 11:16] VITALS: BP 123/70
--- NOTE | 2023-12-29 12:31 | W.DCSUMMARY ---
Discharge Summary
Discharge Data
Date of Admission: 12/26/23
Date of Discharge: 12/29/23
-
Pending Results: No
Hospital Course
58-year-old male with a past medical history includes hypertension anxiety hyperlipidemia and 4 days prior to admission had left hand tendon repair he developed lightheadedness and vertiginous type symptoms prompting evaluation in the ED describing
dizziness and spinning. States that his symptoms were worse with eyes open and head movement with rightward gaze.
He was admitted with a presentation of acute vertigo likely secondary to vestibular neuritis with horizontal nystagmus noted on exam CT a of the head and neck did not show any abnormality. He was placed on combination of Xanax and Zofran for
symptomatic relief of nausea he was placed on a prednisone taper and MRI of the brain was ordered which showed no evidence of any acute stroke. He will be maintained on a prednisone taper he was seen evaluated by physical therapy and Occupational
Therapy he has had gradual improvement although maintained some continued imbalance use properly evaluated by physical therapy and Occupational Therapy on date of his discharge considered okay for discharge and he was able to walk a household
distance with and perform basic ADLs without assistance. He will be given prescription for meclizine along with a prednisone taper as instructed and vestibular rehab therapy has been ordered as an outpatient. Patient will also need hand therapy
for his left hand which has been arranged prior to presentation
Discharge Plan
-
Patient Disposition: Home with Home Care
Discharge Diagnosis/Procedures: Acute vestibular neuronitis
Diet: Regular
Activity: As tolerated
Driving Restrictions: Not until seen by your Dr
Other Services: PT and OT
Activity Restrictions/Additional Instructions:
Instructions on prednisone taper
60mg daily for 1 day, then 50mg next day, 40mg the next,30mg the next ,20mg the next , 10mg next ,5 mg next day and stop
Referrals:
Benjamin Morgan MD [Family Provider] - in less than 1 week
Nelson Ordonez MD [Active] - in two weeks
Prescriptions:
New
meclizine 25 mg Tablet
25 mg PO Q8HPRN PRN (Reason: vertigo/dizziness) Qty: 20 0RF
Rx Instructions:
use if valium is not helping
prednisone 10 mg tablet
10 mg PO DIRECTED Qty: 22 0RF
Rx Instructions:
take as directed
Continued
acetaminophen [Tylenol] 325 mg Tablet
650 mg PO Q4HPRN PRN (Reason: MILD PAIN)
hydrocodone-acetaminophen 5-325 mg Tablet
1 tab PO Q4HPRN PRN (Reason: SEVERE PAIN)
sertraline 100 mg Tablet
100 mg PO HS
ezetimibe [Zetia] 10 mg Tablet
10 mg PO QPM
alfuzosin 10 mg Tablet Extended Release 24 Hr
10 mg PO QPM
cephalexin 500 mg capsule
500 mg PO QID
Discharge Orders:
Discharge Patient (As Directed); Ordered 12/29/23
Ordered By: Marcellus Segovia
Discharge Date and Time
Print Language: MAURITIAN
--- NOTE | 2023-12-29 13:34 | CM ---
MD entered order for discharge.
Requested OT to evaluate. OT did well was amble to ambulate.
Pt said will drive him home.
Pt needs out pt PT for his left arm (he had surgery with [facility])That appt is Tuesday.
Pt needs Vestibular Therapy out pt .
Spoke with Harshal in Vestibular Therapy [phone] she confirmed that pt should be able to do both therapies if not seen on same day.
Explained to pt above . Pt given Vestibular tx number for him to set up therapy.
wrote for out pt Vestibular therapy. RN to give script.
PLAN Home with out pt therapies
== END 2023-12-29 14:12 | disposition home health service (06) ==
LOC: 3 WEST ACU 18:05
PROVIDERS: Physician Assistant; ADMITTING PHYSICIAN Hospitalist; ATTENDING PHYSICIAN Internal Medicine; EMERGENCY PHYSICIAN Emergency Medicine; FAMILY PHYSICIAN Internal Medicine
DX: H81.20 Vestibular neuronitis, unspecified ear (principal); H93.3X9 Disorders of unspecified acoustic nerve; H55.00 Unspecified nystagmus; R10.9 Unspecified abdominal pain; F41.9 Anxiety disorder, unspecified; I10 Essential (primary) hypertension; F32.A Depression, unspecified; R11.2 Nausea with vomiting, unspecified; M54.2 Cervicalgia; E78.5 Hyperlipidemia, unspecified; Z88.8 Allergy status to other drugs, medicaments and biological substances; Z91.013 Allergy to seafood
CPT/HCPCS: 70496; 70498; 70551; 71046; 80053; 81003; 83605; 83690; 84484; 85025; 93005; 96361; 96374; 96375; 96376; 97116; 97163; 97166; 97530; 99285; G0378; Q9967

== ENCOUNTER 2024-01-06 06:19 | Outpatient (RCR) | payer OTHER, SELFPAY | END 2024-01-06 23:59 | disposition home or self-care (01) | LOC: RPT 06:19 | PROVIDERS: ATTENDING PHYSICIAN Internal Medicine | DX: R42 Dizziness and giddiness (principal); Z73.6 Limitation of activities due to disability | CPT/HCPCS: 97112; 97161 ==

== ENCOUNTER 2024-02-09 08:51 | Emergency (ER) | payer OTHER, SELFPAY ==
[2024-02-09 09:02] VITALS: BP 123/80
[2024-02-09 09:39] VITALS: BP 118/74; BP 123/87; BP 125/77; PULSE 58; PULSE 59; PULSE 64
--- NOTE | 2024-02-09 09:42 | ED.GENMED ---
History of Present Illness
<Claudette Alfred PA-C - Last Filed: 02/09/24 18:22>
General
Chief Complaint: Dizziness
Source: patient
Exam Limitations: none
Time Seen by Provider: 02/09/24 09:17
Nursing documentation reviewed up to this point in time: agreed with
History of Present Illness
History of Present Illness:
Patient is a 59-year-old male with history hypertension, hyperlipidemia, thoracic outlet syndrome presenting to the emergency department for evaluation lightheadedness. Patient states that over the past few days he has been noticing lightheadedness
worse when he stands up or moves his head a certain direction. He also states that there is an area in his left infraclavicular region where if he presses that he has a lightheaded sensation. In addition�patient does note intermittent
numbness/tingling of his left hand in his fourth and fifth digit. Patient denies any pain in his left upper extremity. Patient denies any true dizziness sensation, nausea, vomiting, headache, weakness or numbness in lower extremities. Patient does
wonder if symptoms are related to thoracic syndrome in his left upper extremity. He has an appointment scheduled with Dr. Vitale on Tuesday
Of note�patient did recently suffer an injury to his left second digit for which she had a tendon repair with Dr. Cantrell. He is scheduled for scar tissue removal in the next few weeks.
Patient was recently admitted to the hospital for few days in early December for suspected vestibular neuritis. At that time he had a negative CTA head/neck and MRI of brain. Patient states that the symptoms feel very different.
Past History
<Claudette Alfred PA-C - Last Filed: 02/09/24 18:22>
Past History
ED Past Medical History: HTN and Psychiatric (Anxiety)
ED Past Surgical History: None
Social History
Tobacco: Non-smoker
Personal:
Employment: Employed
Review of Systems
<Claudette Alfred PA-C - Last Filed: 02/09/24 18:22>
Review of Systems
Allergies reviewed?: Yes
All Other Systems: ROS reviewed and negative except as documented in HPI and ROS
Phy Exam
<Claudette Alfred PA-C - Last Filed: 02/09/24 18:22>
Physical Exam
Physical Exam:
Vitals: Patient's vital signs are stable. Afebrile
General: Patient is well appearing, no acute distress. Nontoxic-appearing
Skin: Warm and dry, no rashes or lesions
Head: Normocephalic, atraumatic
Eyes: Sclera nonicteric. EOMs intact. No nystagmus. Pupils equal round and reactive to light bilaterally.
Throat: Protecting airway
Neck: Normal ROM, no cervical spine tenderness, no meningismus. Bilateral paracervical muscles nontender.
Cardiac: Regular rate and rhythm, no murmurs.
Pulm: Normal respiratory effort, no wheezes, rales, rhonchi heard on exam. Left clavicle nontender without any obvious deformity or step off.
Abdomen: Abdomen soft. No abdominal tenderness.
Extremities: Left upper extremity without any obvious deformity, nontender with full range of motion. Great radial pulse of left upper extremity. Normal capillary refill of left upper extremity.
Neuro: AAOx3. CN II-XII intact. No focal neurologic deficits. Normal finger-nose. Strength 5 out of 5 in upper and lower extremities.
Psychiatric: Normal affect.
Course
<Claudette Alfred PA-C - Last Filed: 02/09/24 18:22>
Orders/Labs/Results
Orders:
Orders
02/09/24 09:39
Electrocardiogram (*1) Urgent
Reason for Study: Vertigo / Dizzy
EKG- Treatment ONCE
Orthostatic VS- Treatment ONCE
0.9% Sodium Chloride 1000 ml [Nss] 1,000 ml IV BOLUS
CR Chest - 2 Views Urgent
Comment:
Reason For Exam: left infraclavicular pain
US Arms, Left [US Periph Venous UPPER Ext LT] Urgent
Comment:
Reason For Exam: left 4th/5th digit numbness, hx thoracic outlet
02/09/24 09:55
Complete Blood Count/With Diff Urgent
Comprehensive Metabolic Panel Urgent
Abnormal Lab Results
02/09/24
09:55
RBC 4.26 L 10^6/uL
(4.70-6.10)
Hct 37.6 L %
(39.0-52.0)
MCH 31.2 H pg
(27.0-31.0)
02/09/24 09:55
02/09/24 09:55
Vital Signs
Initial and Last Documented VS:
Initial Vital Signs
Temp Pulse Resp BP Pulse Ox
98.9 F 68 18 123/80 97
02/09/24 09:02 02/09/24 09:02 02/09/24 09:02 02/09/24 09:02 02/09/24 09:02
Last Documented Vital Signs
Temp Pulse Resp BP Pulse Ox
98.9 F 59 16 123/83 99
02/09/24 09:02 02/09/24 10:45 02/09/24 10:45 02/09/24 10:43 02/09/24 10:39
<Nabor Reeves, DO - Last Filed: 02/09/24 11:01>
Orders/Labs/Results
Orders:
Orders
02/09/24 09:39
Electrocardiogram (*1) Urgent
Reason for Study: Vertigo / Dizzy
EKG- Treatment ONCE
Orthostatic VS- Treatment ONCE
0.9% Sodium Chloride 1000 ml [Nss] 1,000 ml IV BOLUS
CR Chest - 2 Views Urgent
Comment:
Reason For Exam: left infraclavicular pain
US Arms, Left [US Periph Venous UPPER Ext LT] Urgent
Comment:
Reason For Exam: left 4th/5th digit numbness, hx thoracic outlet
02/09/24 09:55
Complete Blood Count/With Diff Urgent
Comprehensive Metabolic Panel Urgent
Abnormal Lab Results
02/09/24
09:55
RBC 4.26 L 10^6/uL
(4.70-6.10)
Hct 37.6 L %
(39.0-52.0)
MCH 31.2 H pg
(27.0-31.0)
02/09/24 09:55
02/09/24 09:55
Vital Signs
Initial and Last Documented VS:
Initial Vital Signs
Temp Pulse Resp BP Pulse Ox
98.9 F 68 18 123/80 97
02/09/24 09:02 02/09/24 09:02 02/09/24 09:02 02/09/24 09:02 02/09/24 09:02
Last Documented Vital Signs
Temp Pulse Resp BP Pulse Ox
98.9 F 59 16 123/83 99
02/09/24 09:02 02/09/24 10:45 02/09/24 10:45 02/09/24 10:43 02/09/24 10:39
<Claudette Alfred PA-C - Last Filed: 02/09/24 18:22>
MDM/Problems Addressed
Differential Diagnosis Includes:
Not limited to: Viral illness, dehydration, cardiac arrhythmia, orthostatic hypotension, resting syndrome, medial epicondylitis
MDM/Problems Addressed:
59-year-old male resenting with lightheadedness and intermittent numbness of left hand over the past few days. Denies any true dizzy sensation. No headache. Symptoms much different from recent hospital admission in early December. Patient does have
history of thoracic outlet syndrome on right upper extremity and is wondering if symptoms are related to this on the left side. Vital signs stable. Exam as above. Patient is well-appearing, in no apparent distress. No focal neurologic deficits
on exam. No nystagmus. Normal finger-nose. Some decreased sensation in left fifth digit although great pulses in left upper extremity with great capillary refill. Heart regular rate rhythm. Lungs clear bilaterally. Will check basic labs. Will
get chest x-ray and ultrasound of left upper extremity to rule out blood clot. Will check orthostatic vital signs. Will give IV fluids.
Labs noted. No clinically significant abnormalities. Ultrasound of left upper extremity shows no evidence of DVT. Chest x-ray results reviewed which do show some peribronchial thickening -very mild change from last chest x-ray. No infectious
symptoms. Orthostatic vital signs are normal.
Into reassess patient. Symptoms most consistent with possible neuropathy of left upper extremity versus thoracic outlet syndrome. Patient has appointment scheduled for evaluation with Dr. Vitale with orthopedics next Tuesday. At this point no
indication for admission at this time. Stable for discharge with close return precautions and Ortho follow-up. All questions answered. Patient seen with attending physician
Chronic conditions affecting care:
N/A
Acute Exacerbation and/or Progression of Chronic Illness:
N/A
<Claudette Alfred PA-C - Last Filed: 02/09/24 18:22>
*Radiology
Radiology exam reviewed: radiology read reviewed
*Pulse Oximetry
Patient hypoxic: no
*EKG
Interpreted by ED Provider?: Yes
EKG Intrepretation Date: 02/09/24
Interpretation: normal
Comparison EKG: changes noted
Heart Rate: 57
Rate: bradycardiac
Rhythm: sinus
[place]: normal axis
Interval: normal interval
QRS Pattern: normal QRS
Ischemia: no ischemia
*Pest Locator Interpretation
Rate: normal
Interpretation: normal
Heart Rate: 62
Rhythm: sinus
*Critical Care Note
Total Time (30-74mins, 75-104mins- exclusive of procedures): Not Applicable
Data Reviewed
Source: previous hospital records (Patient admitted to hospital in early December of this year for dizziness)
ED Attending Note
<Claudette Alfred PA-C - Last Filed: 02/09/24 18:22>
-
Portions of this chart may have been created with voice recognition software.� Occasional wrong word or��sound alike� substitutions may have occurred due to the inherent limitations of voice recognition software.
<Nabor Reeves DO - Last Filed: 02/09/24 11:01>
ED Attending Note
Patient seen and examined by attending physician: Yes
I performed a history and physical exam of patient and discussed management with resident, I reviewed resident's note and agree with documented findings and plan of care.: Yes
ED Attending Note:
I reviewed and agree with history and treatment plan by Claudette Alfred. My exam revealed
Physical Exam
General: no apparent distress, not acutely ill
Neck: supple. no meningeal signs. normal posterior pharynx
Heart: s1/s2 regular rate and rhythm, no murmur. equal radial
pulses.
HEENT: Pupils equal round reactive to light, EOMI
Lungs: no acute respiratory distress. clear bilaterally
Abdomen: normal bowel sounds. not tender. no CVAT
Neuro: alert and oriented. no focal neurological deficits cranial nerves II through XII intact
Skin: no rash
Psychiatric: well kept. interactive and cooperative
Extremities: no edema. no calf tenderness. negative homans. good distal pulses
Symptoms likely left ulnar neuropathy versus neuropathy related to thoracic outlet syndrome. Patient stable for discharge and follow-up with orthopedics. Return precautions given
Discharge Plan
Departure
Patient Disposition: Home (Routine Discharge)
Date of Disposition: 02/09/24
Time of Disposition: 11:01
Patient with high blood pressure during this ER visit?: No
Condition: Good
Covid-19: Not Applicable
Discharge Problem:
Lightheadedness, Ulnar neuropathy
Prescriptions:
No Action
acetaminophen [Tylenol] 325 mg Tablet
650 mg PO Q4HPRN PRN (Reason: MILD PAIN)
hydrocodone-acetaminophen 5-325 mg Tablet
1 tab PO Q4HPRN PRN (Reason: SEVERE PAIN)
sertraline 100 mg Tablet
100 mg PO HS
ezetimibe [Zetia] 10 mg Tablet
10 mg PO QPM
alfuzosin 10 mg Tablet Extended Release 24 Hr
10 mg PO QPM
cephalexin 500 mg capsule
500 mg PO QID
meclizine 25 mg Tablet
25 mg PO Q8HPRN PRN (Reason: vertigo/dizziness) Qty: 20 0RF
Rx Instructions:
use if valium is not helping
prednisone 10 mg tablet
10 mg PO DIRECTED Qty: 22 0RF
Rx Instructions:
take as directed
Referrals:
Pradip Vitale MD [Active] - Keep scheduled appt
UNKNOWN - PT DOES,NOT KNOW [Unknown Provider] -
Activity Restrictions/Additional Instructions:
RETURN TO THE EMERGENCY DEPARTMENT WITH ANY SEVERE HEADACHE, PERSISTENT DIZZINESS, INTRACTABLE NAUSEA/VOMITING, FAINTING, WORSENING IN CURRENT SYMPTOMS, OR ANY OTHER CONCERNS
-Is important stay well-hydrated. You should limit activities that aggravate symptoms of left arm. Monitor symptoms closely return with any acute worsening/new symptoms.
-As discussed�keep your appoint Dr. Vitale for further evaluation
Interventions
Interventions:
*Risk Screen - Suicide Last Done: 02/09/24 09:02
*General Assessment Last Done: 02/09/24 09:02
*Neglect/Abuse Screening Last Done: 02/09/24 09:02
ED- Fall Risk Assessment Last Done: 02/09/24 11:19
*Nursing Disposition Last Done: 02/09/24 11:19
ED- Neurological Assessment Last Done: 02/09/24 09:25
ED- Cardiac Assessment Last Done: 02/09/24 09:34
Discharge Date and Time
Discharge Date/Time: 02/09/24 11:20
Print Language: UKRAINIAN
[2024-02-09] MEDS: NSS 1000 IV (09:56)
[2024-02-09 10:06] LABS: % Basophils 0.7 % (0-2); % Eosinophils 2.4 % (0-6); % Immature Granulocytes 0.4 % (0-0.5); % Lymphocytes 28.8 % (20.5-51.1); % Monocytes 6.7 % (1.7-9.3); Absolute Eosinophils 0.1 10^3/uL (0-0.7); Absolute Lymphocytes 1.6 10^3/uL (1.2-3.4); Absolute Monocytes 0.4 10^3/uL (0.1-0.6); Absolute Neutrophils 3.4 10^3/uL (1.4-6.5); Hematocrit 37.6 % (39.0-52.0); Hemoglobin 13.3 g/dL (13.0-18.0); Mean Corp Hgb Conc. 35.4 g/dL (33.0-37.0); Mean Corpuscular Hgb 31.2 pg (27.0-31.0); Mean Corpuscular Volume 88.3 fL (80.0-94.0); Mean Platelet Volume 9.4 fL (7.4-10.4); Nucleated Red Blood Cells % 0 % (-); Platelet Count 201 10^3/uL (130-400); Red Blood Cell Count 4.26 10^6/uL (4.70-6.10); Red Cell Dist. Width 12.1 % (11.5-14.5); White Blood Cell Count 5.5 10^3/uL (4.8-10.8)
[2024-02-09 10:20] LABS: ALT (SGPT) 21 U/L (0-50); AST (SGOT) 22 U/L (17-59); Alkaline Phosphatase 50 U/L (38-126); Blood Urea Nitrogen 20 mg/dl (9-20); Calcium 9.2 mg/dl (8.4-10.2); Carbon Dioxide 30 mmol/L (22-30); Chloride 104 mmol/L (98-107); Glucose 98 mg/dl (70-99); Potassium 4.2 mmol/L (3.5-5.1); Sodium 137 mmol/L (135-145); Total Bilirubin 0.4 mg/dl (0.2-1.3); Total Protein 6.3 g/dl (6.3-8.2); eGFR > 60.00
[2024-02-09 10:39] VITALS: BP 118/74
[2024-02-09 10:41] VITALS: BP 125/77
[2024-02-09 10:43] VITALS: BP 123/83
== END 2024-02-09 11:20 | disposition home or self-care (01) ==
LOC: EMR 08:51
PROVIDERS: Physician Assistant; EMERGENCY PHYSICIAN Emergency Medicine; FAMILY PHYSICIAN Internal Medicine
DX: R42 Dizziness and giddiness (principal); G56.22 Lesion of ulnar nerve, left upper limb; I10 Essential (primary) hypertension; F41.9 Anxiety disorder, unspecified; E78.00 Pure hypercholesterolemia, unspecified; G54.0 Brachial plexus disorders
CPT/HCPCS: 99284; 96360; 71046; 80053; 85025; 93005; 93971

== ENCOUNTER 2024-02-22 07:59 | Outpatient (RCR) | payer OTHER, SELFPAY | END 2024-02-22 23:59 | disposition home or self-care (01) | LOC: RPT 07:59 | PROVIDERS: ATTENDING PHYSICIAN Internal Medicine | DX: R42 Dizziness and giddiness (principal); Z73.6 Limitation of activities due to disability | CPT/HCPCS: 97110; 97112 ==

== ENCOUNTER 2024-03-05 08:58 | Outpatient (RCR) | payer OTHER, SELFPAY | END 2024-03-05 23:59 | disposition home or self-care (01) | LOC: RPT 08:58 | PROVIDERS: ATTENDING PHYSICIAN Internal Medicine | DX: R42 Dizziness and giddiness (principal); Z73.6 Limitation of activities due to disability | CPT/HCPCS: 97112 ==